=== PATIENT | female | born 1985 | race Caucasian/White ===

== ENCOUNTER 2022-03-08 10:43 | Emergency (ER) | payer OTHER, SELFPAY ==
[2022-03-08 11:02] VITALS: BP 129/74; PULSE 80; RESP 20; TEMP 36.6; O2SAT 100
--- NOTE | 2022-03-08 11:37 | ED.URI ---
HPI - URI/Sore Throat General Chief Complaint: Upper Respiratory Infection Stated Complaint: Cough,Congestion,Body Aches,Headache Time Seen by Provider: 03/08/22 11:38 Source: patient and RN notes reviewed Mode of arrival: ambulatory Limitations: no limitations History of Present Illness HPI Narrative: 29-year-old female presents for complaint of headache, body aches, sinus pressure/congestion, cough, fever/chills. Onset 2 days. Coworker with flu. taking Sudafed, DayQuil, and Zyrtec for symptoms. Denies shortness of breath, wheezing, vomiting, diarrhea. MD elicited complaint: cough Related Data Home Medications Medication Instructions Recorded Confirmed No Home Medications 03/08/22 03/08/22 Allergies Allergy/AdvReac Type Severity Reaction Status Date / Time sulfamethoxazole AdvReac Mild Hives Verified 03/08/22 10:56 trimethoprim AdvReac Mild Hives Verified 03/08/22 10:56 Review of Systems Review of Systems: CONSTITUTIONAL: Endorses malaise, chills, sweats, fever EYES: Denies visual changes, redness, or discharge ENT: Reports rhinorrhea, congestion, Deniessinus pain, otalgia, sore throat CARDIOVASCULAR: Denies chest pain, palpitations, edema RESPIRATORY: Reports cough, post nasal drainage. Denies dyspnea GASTROINTESTINAL: Denies abdominal pain, nausea, vomiting, diarrhea SKIN: Denies rash or itching MUSCULOSKELETAL: Endorses myalgia NEUROLOGIC: Endorses headache Exam Narrative: GENERAL: Ill-appearing, nontoxic EYES: PERRLA, conjunctivae clear ENT: Mucous membranes moist. TMs pearly cross with dull light reflex bilaterally; no tragal tenderness. Oropharynx erythematous without lesions or exudate, no drooling, no hoarseness, no trismus, uvula midline. CHEST: Clear to auscultation, breath sounds equal. HEART: Regular rate and rhythm. No murmur heard. SKIN: Warm, dry, no rash. NEURO: Alert and oriented x3. PSYCH: Normal mood and affect Course Course Emergency Course: Patient is aware of diagnosis, understands and agrees to treatment plan. Anticipatory guidance given. Patient agrees to follow-up as directed and is aware of reasons to seek care at the emergency department. Portions of this record may have been created with voice recognition software Level of Care: Express Care Visit Vital Signs Vital signs: Vital Signs Temperature 97.8 F 03/08/22 11:02 Pulse Rate 80 03/08/22 11:02 Respiratory Rate 20 03/08/22 11:02 Blood Pressure 129/74 03/08/22 11:02 Pulse Oximetry 100 03/08/22 11:02 Oxygen Delivery Room Air 03/08/22 11:02 Temperature 97.8 F 03/08/22 11:02 Pulse Rate 80 03/08/22 11:02 Respiratory Rate 20 03/08/22 11:02 Blood Pressure 129/74 03/08/22 11:02 Pulse Oximetry 100 03/08/22 11:02 Oxygen Delivery Room Air 03/08/22 11:02 reviewed MDM - URI/Sore Throat MDM Narrative Medical decision making narrative: influenza positive. Results reviewed with patient. Declines Tamiflu. Advised supportive measures and signs/symptoms to go to the ER. Pt is appropriate for outpt treatment and f/u. Differential Diagnosis Differential diagnosis: Likely upper respiratory infection, sinusitis and viral infection Discharge Plan Discharge Clinical Impression: Influenza Patient Disposition: Home, Self-Care Condition: Stable Instructions: Antibiotic Form, Influenza (ED) Additional Instructions: Influenza positive You should avoid crowds until you are fever free for 24 hours without the use of fever reducing medications, or the symptoms are improved Rest. Drink plenty of fluids. Tylenol 1000mg every 8 hours as needed for pain/fever Recommend Flonase spray and Zyrtec (or Claritin/Azucena) for sinus pressure/congestion over the counter Cough syrup may cause drowsiness; avoid driving or take it at night time. Follow up with your primary care provider as needed in 1-2 weeks Go to the ER for worsening symptoms or concerns Prescriptions: No Action
== END 2022-03-08 11:50 | disposition home or self-care (01) ==
PROVIDERS: Emergency Provider Nurse Practitioner Family
DX: J11.1 Influenza due to unidentified influenza virus with other respiratory manifestations (principal)
CPT/HCPCS: 87804; 99213; G0463

== ENCOUNTER 2023-01-14 15:22 | Outpatient (CLI) | payer OTHER, SELFPAY ==
--- NOTE | ~2023-01-14 | XR_ITS ---
XR foot LT min 3V DATE: 01/14/2023 15:52 INDICATION: Left foot pain TECHNIQUE: 4 views COMPARISON: None FINDINGS: Mild plantar and more prominent posterior calcaneal enthesopathy. No associated periosteal reaction or erosive change is noted. There is a small soft tissue calcification subjacent to the infe rior calcaneal spur. There is mild osteoarthritis at the first metatarsophalangeal joint. Is mild osteoarthritis and some medial degenerative ossicles at the interphalangeal joint of the great toe. No fracture, dislocation, periosteal reaction or bone destruction is detected. 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
--- NOTE | ~2023-01-14 | XR_ITS ---
XR heel LT min 2V DATE: 01/14/2023 15:51 INDICATION: Left foot pain TECHNIQUE: Axial and lateral views COMPARISON: None FINDINGS: There is prominent posterior and mild plantar calcaneal enthesopathy without associated per iostitis or erosive change. There is an approximately 1.1 mm calcification subjacent to the inferior calcaneal spur. No calcaneal fracture or bone destruction. IMPRESSION: Calcaneal enthesopathy Reviewed, dictated and finalized at location A. IMPRESSION: Calcaneal enthesopathy
== END 2023-01-14 15:23 ==
LOC: MICIMG 15:24
PROVIDERS: PCP Nurse Practitioner Family; Visit Provider Nurse Practitioner Family
DX: M77.32 Calcaneal spur, left foot (principal); M19.072 Primary osteoarthritis, left ankle and foot
CPT/HCPCS: 73630; 73650

== ENCOUNTER 2023-10-30 14:11 | Outpatient (CLI) | payer OTHER, SELFPAY ==
--- NOTE | ~2023-10-30 | XR_ITS ---
EXAMINATION: XR heel RT min 2V DATE: 10/30/2023 14:35 INDICATION: Right foot pain. TECHNIQUE: 2 views of right calcaneus were obtained. COMPARISON: None. FINDINGS: Alignment is normal. No fracture. Joint spaces are normal. There are enthesophytes at the p osterior and plantar aspects of calcaneal tuberosity. IMPRESSION: 1. No fracture. Reviewed, dictated and finalized at location E. IMPRESSION: 1. No fracture.
--- NOTE | ~2023-10-30 | XR_ITS ---
EXAMINATION: XR foot LT min 3V, XR heel LT min 2V DATE: 10/30/2023 14:35 INDICATION: Left foot pain TECHNIQUE: 1. Dorsoplantar, two oblique and lateral views of the left foot were obtained. 2. Lateral and axial views of the left calcaneus were obtained. COMPARISON: None. FINDINGS: Alignment is normal. No fracture. Joint spaces are normal. No erosions. Small plantar calcaneal spur and moderate-sized Achilles calcaneal spur. Soft tissues are unremarkable. IMPRESSION: 1. Achilles and plantar calcaneal enthesophytes. Reviewed, dictated and finalized at location A. IMPRESSION: 1. Achilles and plantar calcaneal enthesophytes.
--- NOTE | ~2023-10-30 | XR_ITS ---
EXAMINATION: XR foot RT min 3V DATE: 10/30/2023 14:35 INDICATION: Right foot pain. TECHNIQUE: 4 views of right foot were obtained. COMPARISON: None. FINDINGS: Bone alignment is normal. No fracture. Joint spaces are normal. There are enthesophytes at the posterior and plantar aspects of calcaneal tuberosity. IMPRESSION: 1. No fracture. Reviewed, dictated and finalized at location E. IMPRESSION: 1. No fracture.
== END 2023-10-30 14:12 ==
LOC: MICIMG 14:12
DX: M79.671 Pain in right foot (principal); M77.32 Calcaneal spur, left foot
CPT/HCPCS: 73630; 73650

== ENCOUNTER 2024-06-16 13:41 | Outpatient (CLI) | payer OTHER, SELFPAY ==
--- NOTE | ~2024-06-16 | MM_ITS ---
EXAMINATION: MM screening gladys BI w mat HISTORY: Screening mammogram TECHNIQUE: Craniocaudal and mediolateral oblique 3-D tomosynthesis images were obtained and synthetic 2-D images were generated. CAD analysis was submitted and interpreted. COMPARISON: No prior mammogram is available for comparison at this institution. BREAST PARENCHYMAL COMPOSITION:Not Dense. There are scattered areas of fibroglandular density. FINDINGS: No suspicious mass, calcification, or architectural distortion are identified in either jed ast to suggest malignancy. There has been no suspicious interval change. IMPRESSION: No mammographic evidence of malignancy. Recommend routine screening mammography in one year. BI-RADS Category 1: Negative Reviewed, dictated and finalized at location . INTEGRATION DEVELOPER
--- OUTSIDE RECORDS SUMMARY | 2024-06-16 15:32 | XMS_ITS | Continuity of Care Document ---
Author Organization [facility] Address [address] [place] [address] Phone Care Team Providers Care Border Measurer Name Role Phone Max Hardin MD Unavailable Unavailable Allergies, Adverse Reactions, Alerts Substance Reaction Status Criticality trimethoprim Active No Information sulfamethoxazole Active No Informat ion Medications Medication Instructions Dosage Effective Dates (start - stop) Status Comments fluticasone 50 mcg/actuation Nasal [place], Susp spray 2 spray (100MCG) by intranasal route every day in each nostril 100 MCG - Active Advance Directives Directive Yes / No Effective Date File Name No Information Encounters Encounter Description Practice Location Reason(s) For Visit Diagnoses Date Provider Providers Copied on Encounter [facility], [address], [place], [place], [id number], [place] tel:[phone] [facility] Allergic rhinitis due to other allergen Wilfred Santana. [address], [id number], [place]. tel:[phone] Referring Provider: Natacha Kwon, [address] [place], [address]. tel:[phone] Family History Family Member Type Diagnosis Age At Onset Brother Problem (finding) Allergies Brother Problem (finding) asthma Payers Payer name Insurance type Covered constitution party ID Authoriza tion(s) [facility] [id number] Social History Type Description Quantity Date Captured Comments Alcohol Use Details Unknown Caffeine Use Details Unknown Tobacco Use Status No Information Smoking Status No Information Sex Female Vital Signs Date / Time: Height Weight BMI Pulse Rate Blood Pressure Temperature Respiratory Rate Body Surface Area Head Circumference Head Circ. Percentile Wt./Mike. Percentile BMI percentile Pulse Ox Inhaled Ox 2:56 PM 62.25 in 205.00 lbs 37.1 9 kg/m eter (2) 81 /min 126/81 mm[Hg] Chief Complaint And Reason For Visit No Information Reason For Referral Reason For Referral No Information History Of Present Illness Encounter Date Complaint History Of Prese nt Illness No Information Functional Status Date Functional Assessmen t No Information Instructions Date Instruction Additional Infor mation No Information Assessments Type Assessment Date No Information Patient Care Teams Name Effective Dates (start - stop) Status Members No Information
--- OUTSIDE RECORDS SUMMARY | 2024-06-16 15:32 | XMS_ITS | Continuity of Care Document ---
Author Organization [facility] Address [address] [place] [address] Phone Care Team Providers Care Convention Services Director Name Role Phone Matt OD, Eduardo Unavailable Unavailable Procedures Procedure Date Contact Lens Check SV Plastic Sphcyl [place] +/-4d, .12-2d Au Frames Deluxe Scratch Resistant Coating Lens-Index 1.54-1.79 Glass Eye Exam & Treatment Refraction Office/outpatient Visit, Est Office/outpatient Visit, Est Office/outpatient Visit, Est Office/outpatient Visit, Est Office/outpatient Visit, Est Advance Directives Directive Yes / No Effective Date File Name No Information Encounters Encounter Description Practice Location Reason(s) For Visit Diagnoses Date Provider Providers Copied on Encounter [facility], [address] [place] [address] [address], [place], [place], [id number], [place] tel:[phone] [facility] No Information 0 Matt OD Eduardo. [address] , [address], [place], [address], [place]. tel:[phone] [facility], [address] [place] [address] [address], [place], [place], [id number], [place] tel:[phone] [facility] No Information 0 [facility] . [address], [address], [place], [id number], . tel:[phone] Referring Provider: Eduardo Matt OD A, [address] [place], [place] [address], [place], [address]. tel:[phone] sulting Provider: Jayjay Ramon, [facility] [address], [place], [address]. tel:[phone] [facility], [address] [place] [address] [address], [place], [place], [id number], [place] tel:[phone] [facility] [place] No Information 1 8-201 0 Matt OD Eduardo. [address] [place] [address] , [address], [place], [address], [place]. tel:[phone] Office/outpat ient Visit, [facility], [address] [place] [address] [address], [place], [place], [id number], [place] tel:[phone] [facility] [place] No Information Ben-0 6-200 9 Matt OD Eduardo. [address] [place] [address], [place], [address], [place]. tel:[phone] Office/outpat ient Visit, [facility], [address] [place] [address] [address], [place], [place], [id number], [place] tel:[phone] [facility] No Information Dec-2 7-200 8 Matt OD Eduardo. [address] [place] [address], [place], [address], [place]. tel:[phone] Office/outpat ient Visit, [facility], [address] [place] [address] [address], [place], [place], [id number], [place] tel:[phone] [facility] [place] No Information Dec-2 3-200 8 Matt OD Eduardo. [address] [place] [address] [address] , [address], [place], [address], [place]. tel:[phone] Office/outpat ient Visit, [facility], [address], [place], [place], [id number], [place] tel:[phone] [facility] No Information 9-200 8 Matt OD Eduardo. [address] [facility] , [address], [place], [address], [place]. tel:[phone] Office/outpat ient Visit, [facility], [address], [place], [place], [id number], [place] tel:[phone] [facility] No Information 7200 8 Matt OD Eduardo. [address] [facility] , [address], [place], [place], [facility], [place]. tel:[phone] Family History Family Member Type Diagnosis Age At Onset No Information Payers Payer name Insurance type Covered green party ID Authoriza tion(s) No Information Social History Type Description Quantity Date Captured Comments Sex Female Smoking Status No Information Chief Complaint And Reason For Visit No [...]
== END 2024-06-16 13:42 | disposition home or self-care (01) ==
LOC: CHSIMG 13:45
PROVIDERS: Visit Provider Student in an Organized Health Care Education/Training Program
DX: Z12.31 Encounter for screening mammogram for malignant neoplasm of breast (principal)
CPT/HCPCS: 77063; 77067